=== PATIENT | female | born 1945 | race Caucasian/White ===

== ENCOUNTER 2016-07-10 14:40 | Observation (INO) ==
[2016-07-10] MEDS ORDERED: ZOFRAN IV PRN (15:15)
--- NOTE | 2016-07-10 15:53 | Diag Imaging Result Doc PS360 ---
EXAM: CHEST-2 VIEWS HISTORY: Abd pain, diverticulitis TECHNIQUE: PA and lateral COMMENT: The inspiration is less optimal than on 04/22/2013. Otherwise has been no significant change in the appearance of the chest. IMPRESSION: No acute disease. Electronically signed by Denver Jorgensen 07/10/2016 3:51 PM
[2016-07-10] MEDS: D5 1/2 NS 1,000 ML IV SCH (16:01)
[2016-07-10] MEDS: KEFZOL 1 GM/D5W 1 GM/50 ML IVPB IV SCH ×2 (16:01→23:41)
[2016-07-10 16:12] LABS: MANUAL DIFF NEEDED? NO
[2016-07-10 16:16] LABS: BASO% 0.3 % (0.0-0.8); EOS# 0.05 X1000 (0.0-0.7); EOS% 0.6 % (0.0-10.0); HEMATOCRIT 43.3 % (37.0-47.0); HEMOGLOBIN 14.4 g/dL (12.0-16.0); IMM GRAN# 0.02 X1000 (0.0-0.04); IMM GRAN% 0.3 % (0.0-0.5); LYMPH# 1.98 X1000 (1.2-3.4); LYMPH% 25.4 % (20.5-51.1); MCHC 33.3 g/dL (33-37); MCV 87.3 FL (81-99); MONO# 0.67 X1000 (0.11-0.59); MONO% 8.6 % (1.7-9.3); MPV 10.3 FL (7.4-10.4); NEUT% 64.8 % (42.2-75.2); PLT 195 X1000 (130-400); RBC 4.96 XMIL (4.2-5.4)
[2016-07-10 16:20] LABS: URINE MICRO REVIEW NEEDED? NO; URINE SOURCE CLEAN CATCH
[2016-07-10 16:32] LABS: BILIRUBIN URINE NEGATIVE (NEGATIVE); BLOOD URINE NEGATIVE (NEGATIVE); COLOR STRAW; GLUCOSE URINE NEGATIVE (NEGATIVE); LEUKOCYTES URINE NEGATIVE (NEGATIVE); NITRITE URINE NEGATIVE (NEGATIVE); PROTEIN URINE NEGATIVE (NEGATIVE); SP GRAVITY URINE 1.007; TURBIDITY URINE CLEAR (CLEAR); UROBILINOGEN URINE NORMAL (NORMAL)
[2016-07-10 16:34] LABS: UR EPITHELIAL CELLS <10 /HPF (<10); URINE BACTERIA NEGATIVE /HPF; URINE RBC <10 /HPF (<10); URINE WBC <10 /HPF (<10)
[2016-07-10 16:42] LABS: AGAP 12; ALKALINE PHOSPHATASE 83 U/L (32-104); BUN 11 mg/dL (8-22); CALCIUM 9.2 mg/dL (8.8-10.2); CHLORIDE 99 mmol/L (98-107); COSMO 273; GOT 27 U/L (10-30); GPT 24 U/L (10-36); POTASSIUM 3.8 mmol/L (3.5-5.1); SODIUM 137 mmol/L (136-145); TCO2 26 mmol/L (25-35); TOTAL BILIRUBIN 0.68 mg/dL (0.20-1.00)
[2016-07-10] MEDS ORDERED: PNEUMOVAX 23 IM ONE (17:45)
--- NOTE | 2016-07-11 05:18 | EKG Report ---
Test Performed on : 07/10/2016 3:50:12 PM Test Reason : Abd pain, diverticulitis Blood Pressure : / mmHG Vent. Rate : 056 BPM Atrial Rate : 056 BPM P-R Int : 180 ms QRS Dur : 080 ms QT Int : 436 ms P-R-T Axes : 041 011 024 degrees QTc Int : 420 ms Sinus bradycardia. Otherwise normal ECG When compared with ECG of 30-APR-2011 14:33, Questionable change in QRS axis Confirmed by Cj Wheat MD ([id number]) on 07/11/2016 4:17:06 PM
[2016-07-11] MEDS: D5 1/2 NS 1,000 ML IV SCH (05:35)
--- NOTE | 2016-07-11 07:35 | Diag Imaging Result Doc PS360 ---
EXAM: ABDOMEN/PELVIS W/CONTRAST HISTORY: r/o diverticulitis TECHNIQUE: CT of the abdomen with intravenous and oral contrast and dose reduction (clarity.) COMMENT: There are no previous studies available for comparison. Minimal subsegmental atelectasis is present in the lower lobes bilaterally. The adrenal glands are not enlarged. There are calcifications in the aorta. There is no evidence of aneurysm. The renal and mesenteric arteries are patent. There is some slight dilatation of the proximal celiac artery beyond the ostium which may be due to poststenotic dilatation. 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 There is mild hydronephrosis on the right. There are no stones identified in the ureters or urinary bladder. The urinary bladder is slightly distended. The appendix has been previously resected. There is a lesser degree of prominence of the collecting system and renal pelvis on the left side. No evidence of mass on either kidney is present. The spleen and adrenal glands and pancreas are unremarkable. The liver is within normal limits. There is no evidence of bowel obstruction. No significant adenopathy is present. There is slight scoliosis of the lumbar spine with convexity to the right. CT of the pelvis with intravenous and oral contrast: There is diverticulosis in the sigmoid colon. There is a 1.5 cm left ovarian cyst. There is no evidence of free fluid. No acute abnormalities are demonstrated in the regional skeleton. IMPRESSION: Diverticulosis coli. Scoliosis. Left ovarian cyst. The findings were discussed with Rishi Bach MD at 07/11/2016 7:33 AM. Electronically signed by Denver Jorgensen 07/11/2016 7:33 AM
[2016-07-11 07:40] VITALS: BP 109/76
[2016-07-11] MEDS: KEFZOL 1 GM/D5W 1 GM/50 ML IVPB IV SCH (09:32)
--- NOTE | 2016-07-24 11:13 | HISTORY AND PHYSICAL ---
DIAGNOSIS: Lower abdominal pain. Possible recurrent diverticulitis. PLAN: Admission and observation. CT scan of the abdomen. HISTORY OF PRESENT ILLNESS: The patient is a 71-year-old, white female known to me for many years with history of sigmoid resection about 8-10 years ago for diverticulitis. She had been complaining of lower abdominal pain has progressively been getting worse over the last couple of weeks. Exam in the office reveals some tenderness in the lower abdomen but no abscess or mass felt. PAST HISTORY: She is, otherwise, negative. She is multiparous. She has had previous gallbladder surgery, appendectomy, hysterectomy, sigmoid resection. She has had open repair of a right clavicular fracture as well. PHYSICAL EXAMINATION: GENERAL: Physical exam reveals a middle-aged white female in moderate discomfort. HEAD AND NECK: She is normocephalic, atraumatic. Pupils equal and reactive. EAR, NOSE, AND THROAT: Negative. CHEST: Chest is clear. BREASTS AND AXILLARY: Negative. Mammography will be updated this year. ABDOMEN: Abdomen reveals a well-healed midline scar from previous sigmoid resection as well as hysterectomy. No hernias. GENITOURINARY: Negative. Neurologically intact. IMPRESSION: Possible recurrent diverticulitis. PLAN: Admission, antibiotics, CT scan of the abdomen, plus-minus colonoscopy in the near future. cc: Rishi Bach MD
== END 2016-07-11 10:20 | disposition home or self-care (01) ==
LOC: DIRADM → 4N 14:40
PROVIDERS: ADMIT Surgery; ATTEND Surgery